=== PATIENT | male | born 1985 | race Caucasian/White ===

== ENCOUNTER 2021-10-19 15:25 | Outpatient (CLI) | payer BC, SELFPAY ==
--- NOTE | 2021-10-19 15:38 | RAD_ITS ---
STUDY: X-RAY - RIGHT FOOT CLINICAL: Male, 35 years old. PAIN IN R FOOT/TOE TECHNIQUE: view(s) of the foot. COMPARISON: None. FINDINGS: There is a fracture of the shaft of the proximal phalanx of the fourth toe. Normal visualized subtalar, talonavicular, calcaneocuboid, tarsal and tarsometatarsal articulations. Normal metatarsi. Normal metatarsophalangeal joint of the great toe. Normal tibial and fibular sesamoid bones. Normal interphalangeal joint of the great toe. Normal phalanges of the great toe. Normal second through fifth metatarsophalangeal joints. Normal interphalangeal joints and phalanges of the lesser toes. The soft tissue structures are unremarkable. RAD/Foot min 3 Views IMPRESSION: Fracture proximal phalanx of the fourth toe. Electronically Signed: Rashad Emerson MD at 6:58 EDT ,
== END 2021-10-19 23:59 | disposition home or self-care (01) ==
PROVIDERS: PCP Family Medicine; Referring Provider Family Medicine; Visit Provider Family Medicine
DX: M79.671 Pain in right foot (principal); M79.674 Pain in right toe(s)
CPT/HCPCS: 73630